=== PATIENT | female | born 1995 | race Caucasian/White ===

== ENCOUNTER 2017-01-19 02:02 | Emergency (ER) | payer OTHER ==
[2017-01-19 02:12] VITALS: TEMP 36.3; O2SAT 99
--- NOTE | 2017-01-19 02:32 | EMERGENCY ROOM VISIT NOTE ---
History Report prepared by Gatito: Beulah Hoang Under the Supervision of: Dr. Alexandru Juarez M.D. First contact with patient: 02:02 Chief Complaint: ALCOHOL OVERDOSE Stated Complaint: ALCOHOL OVERDOSE History of Present Illness The patient is a 0M 0D year old female who presents to the Emergency Room with complaints of an episode of alcohol overdose occurring prior to arrival. Per EMS , the [place]. They state that she was with a sober male friend who did not know where she lived and she didn't know where she lived either. They note that she blew a .235. HPI is limited secondary to alcohol intoxication. Source of History: EMS History Limited By: intoxication Onset: prior to arrival Position: other (global) Quality: other (global) Timing: other (episode) Review of Systems See HPI for pertinent positives & negatives. A total of 10 systems reviewed and were otherwise negative. Past Medical & Surgical Medical Problems: (1) No Known Active Medical Problems Family History No pertinent family history Social History Alcohol Use: heavy Marital Status: single Housing Status: lives with roommate Occupation Status: [employer] student Current/Historical Medications Unable to Obtain Active Prescriptions or Reported Meds Physical Exam Vital Signs Date Time Temp Pulse Resp B/P (MAP) Pulse Ox O2 Delivery O2 Flow Rate FiO2 01/19/17 03:28 69 16 88/60 96 Room Air 01/19/17 02:12 36.3 107 17 111/68 99 Room Air 01/19/17 02:12 99 Room Air 01/19/17 02:12 88 Physical Exam GENERAL: Patient is heavily intoxicated. Smells of alcohol. slurred speech. Mildly belligerent, but redirectable. Well appearing and in no acute distress. HEAD: No evidence of Trauma. AT/NC EYES: injected conjunctiva. Normal EOM. Pupils equal/reactive. ENT: Mucous membranes moist, no nasal congestion, . NECK: No step-offs, no adenopathy, no meningismus, trachea is midline. LUNGS: No dyspnea. Clear to auscultation and equal bilaterally. No wheeze, no rhonchi. HEART: Regular rate and rhythm. No murmurs, rubs, gallops appreciated. ABDOMEN: Soft, nontender, bowel sounds positive, no masses appreciated, no peritonitis. BACK: No midline tenderness, no CVA tenderness EXTREMITIES: Normal motion all extremities, no cyanosis, no edema. NEUROLOGIC: Intoxicated. No acute motor or sensory deficits, no focal weakness , cranial nerves grossly intact. SKIN: No rash, no jaundice, no diaphoresis. Medical Decision & Procedures Laboratory Results 01/19/17 02:35 Test 01/19/17 02:35 Anion Gap 10.0 mmol/L (3-11) Estimated GFR () 138.7 Estimated GFR (Non- 119.7 BUN/Creatinine Ratio 8.8 (10-20) Calcium Level 8.5 mg/dl (8.5-10.1) Human Chorionic Gonadotropin, Qual NEG (NEG) Ethyl Alcohol mg/dL 311.0 mg/dl (0-3) Laboratory results as reviewed by me. ED Course 0206: The patient was evaluated in room B11A. A complete history and physical exam was performed. 0334: Nursing was able to get the patient up and help her ambulate to the bathroom. Medical Decision Differential: Alcohol Intoxication, Drug Intoxication, Electrolyte Abnormality, Trauma, Intracranial Event, Toxicological, Excited Delirium, Serotonin Syndrome , amongst other pathologies entertained. 21 yr old intoxicated female brought in by EMS after being found intoxicated downtown. Patient with no evidence nor history for trauma. Protecting airway and breathing comfortably throughout ED stay. EtOH positive. Monitored and discharged when awake, alert, oriented and denies any complaints. Medication Reconcilliation Current Medication List: was personally reviewed by me Blood Pressure Screening Patient's blood pressure: Normal blood pressure Blood pressure disposition: Did not require urgent referral Impression Primary Impression: Alcohol intoxication Additional Impression: Alcohol abuse Scribe Attestation The scribe's documentation has been prepared under my direction and personally reviewed by me in its entirety. I confirm that the note above accurately reflects all work, treatment, procedures, and medical decision making performed by me. Departure Information Dispostion Home / Self-Care Prescriptions Unable to Obtain Active Prescriptions or Reported Meds Patient Instructions My [facility] Additional Instructions You were evaluated in emergency department for intoxication. This is a sign of Alcohol Abuse and should not be taken lightly. You had a blood alcohol level that was significantly elevated. Over the next 24 hours keep well hydrated and eat light meals. Don't drink any more alcohol. This is important. Please discuss this visit with your Primary Care Provider, [facility] [address] and/or your loved ones. Unless an exceptional circumstance, the Hospital DOES NOT contact anyone DURING your visit, nor is your Protected Medical Information released to anyone without your approval/request. This means we do not contact your Parents, the Police, etc. However, you will likely receive a bill from the Hospital and/or your Insurance company, which will usually be sent to the Primary Policy Jones (often one's Parents). Furthermore, as a student, your visit report will likely be sent to [facility] [address] as your primary care provider, unless other Provider listed. If your incident was on campus, or if the Police were involved, they will often contact the University to make them aware of what happened. Often this will result in you being required to take Alcohol Education classes (ie BASICS class) . Please see information given to you at discharge regarding contact for this. If the Police were involved you will likely be cited for public intoxication. Please contact either [facility] Police or the [place] Police for further information. Call 911 or return to Emergency Department if you develop: Passing out, difficulty breathing, many episodes of vomiting, blood in vomit or stool, abdominal pain, fevers, or other severe symptoms. We are always here to help if you feel you need further evaluation or treatment. Problem Qualifiers
[2017-01-19 03:00] LABS: BLOOD UREA NITROGEN 6 mg/dl (7-18); BUN/CREATININE RATIO 8.8 (10-20); CALCIUM 8.5 mg/dl (8.5-10.1); CARBON DIOXIDE 23 mmol/L (21-32); CHLORIDE 107 mmol/L (98-107); CREATININE 0.72 mg/dl (0.60-1.20); GLUCOSE 100 mg/dl (70-99); POTASSIUM 3.4 mmol/L (3.5-5.1); SODIUM 140 mmol/L (136-145)
[2017-01-19 03:28] LABS: PREG INTERNAL NEGATIVE QC NEG CLEAR BACKGROUND; PREG INTERNAL POSITIVE QC POS CONTROL LINE
[2017-01-19 10:01] VITALS: BP 101/60; PULSE 74; O2SAT 100
== END 2017-01-19 10:03 | disposition home or self-care (01) ==
LOC: EDUNIT# 02:02 → C.EDB 02:04
DX: F10.120 Alcohol abuse with intoxication, uncomplicated (principal)